=== PATIENT | male | born 1985 | race Caucasian/White ===

== ENCOUNTER 2018-05-19 00:26 | Emergency (ER) | payer OTHER ==
[~2018-05-19] VITALS: Ht 198.1 cm; Wt 86.5 kg
[~2018-05-19 00:26] MED LIST: MOBIC7.5 MG PO
[2018-05-19 02:02] LABS: HEMATOCRIT 38.3 % (38.0-50.0); HEMOGLOBIN 13.4 G/DL (12.5-16.6); MCH 30.5 PG (29.0-34.0); MCV 87.2 FL (86-99); PLATELET COUNT 194 K/uL (156-360); RBC DIS.WIDTH-CV 11.7 % (11.8-14.6); RBC DIS.WIDTH-SD 37.8 % (39-53); RED BLOOD COUNT 4.39 M/uL (4.00-5.50); WHITE BLOOD COUNT 7.7 K/uL (4.1-10.2)
[2018-05-19 02:14] LABS: CHLORIDE 109 mEq/L (99-109); POTASSIUM 3.3 mEq/L (3.7-5.4); SODIUM 143 mEq/L (136-147)
[2018-05-19 02:17] LABS: GLUCOSE 113 mg/dL (70-99); TOTAL PROTEIN 6.2 g/dL (6.4-8.3)
[2018-05-19 02:18] LABS: TOTAL BILIRUBIN 1.4 mg/dL (0.0-1.0)
[2018-05-19 02:20] LABS: ALKALINE PHOSPHATASE 72 IU/L (3-129); GFR ESTIMATE (CALCULATED) > 59 mL/min/ (58.99-99999)
[2018-05-19 02:21] LABS: UREA NITROGEN (BUN) 19 mg/dL (9-23)
[2018-05-19 02:22] LABS: AST (GOT) 21 IU/L (2-34)
[2018-05-19 02:23] LABS: ALT (GPT) 25 IU/L (3-49)
[2018-05-19] MEDS ORDERED: FLEXERIL10 MG PO (03:29)
[2018-05-19] MEDS ORDERED: NAPROSYN500 MG PO (03:29)
[2018-05-19 03:54] VITALS: BP 131/76
== END 2018-05-19 03:55 | disposition home or self-care (01) ==
LOC: EME 00:26
PROVIDERS: Physician Assistant
DX: S09.90XA Unspecified injury of head, initial encounter (principal); S20.219A Contusion of unspecified front wall of thorax, initial encounter; S16.1XXA Strain of muscle, fascia and tendon at neck level, initial encounter; V54.5XXA Driver of pick-up truck or van injured in collision with heavy transport vehicle or bus in traffic accident, initial encounter; Y92.411 Interstate highway as the place of occurrence of the external cause; F17.200 Nicotine dependence, unspecified, uncomplicated
CPT/HCPCS: 70450; 71260; 72125; 74177; 80053; 85027; 99281; 99284

== ENCOUNTER 2018-07-01 01:09 | Emergency (ER) | payer OTHER ==
[~2018-07-01] VITALS: Ht 198.1 cm; Wt 88.4 kg
[~2018-07-01 01:09] MED LIST changes: +FLEXERIL10 MG PO; +NAPROSYN500 MG PO
[2018-07-01 02:26] LABS: BASOPHIL (%) 0.9 % (0-1); BASOPHIL COUNT 0.1 K/uL (0-0.1); EOSINOPHIL (%) 7.1 % (0-5); EOSINOPHIL COUNT 0.6 K/uL (0-0.3); HEMATOCRIT 39.1 % (38.0-50.0); HEMOGLOBIN 13.4 G/DL (12.5-16.6); IMMATURE GRANULOCYTE (%) 0.3 % (0.0-0.7); LYMPHOCYTE (%) 31.6 % (15-42); LYMPHOCYTE COUNT 2.5 K/uL (1.0-2.8); MCHC 34.3 G/DL (30.0-36.0); MCV 87.7 FL (86-99); MONOCYTE (%) 5.9 % (3-12); MONOCYTE COUNT 0.5 K/uL (0-0.8); NEUTROPHIL (%) 54.2 % (45-76); NEUTROPHIL COUNT 4.3 K/uL (1.8-6.4); PLATELET COUNT 180 K/uL (156-360); RBC DIS.WIDTH-CV 12.1 % (11.8-14.6); RBC DIS.WIDTH-SD 39.1 % (39-53); RED BLOOD COUNT 4.46 M/uL (4.00-5.50); WHITE BLOOD COUNT 7.9 K/uL (4.1-10.2)
[2018-07-01 02:28] LABS: ERTH.SED.RATE 5 MM/HR (0-15)
[2018-07-01 02:29] LABS: CHLORIDE 110 mEq/L (99-109); POTASSIUM 3.9 mEq/L (3.7-5.4); SODIUM 141 mEq/L (136-147)
[2018-07-01 02:30] LABS: GLUCOSE 84 mg/dL (70-99)
[2018-07-01 02:34] LABS: CREATININE 0.9 mg/dL (0.6-1.3); GFR ESTIMATE (CALCULATED) > 59 mL/min/ (58.99-99999)
[2018-07-01 02:35] LABS: UREA NITROGEN (BUN) 14 mg/dL (9-23)
[2018-07-01 04:00] LABS: C-REACTIVE PROTEIN 3.1 MG/L (0-10)
[2018-07-01] MEDS ORDERED: MOTRIN800 MG PO (04:13)
[2018-07-01] MEDS ORDERED: NORCO 5/3251 TABLET PO (04:13)
[2018-07-01 04:44] VITALS: BP 94/61
== END 2018-07-01 04:44 | disposition home or self-care (01) ==
LOC: EME 01:09
PROVIDERS: Emergency Medicine
DX: M70.21 Olecranon bursitis, right elbow (principal); F17.200 Nicotine dependence, unspecified, uncomplicated
CPT/HCPCS: 73080; 80048; 85025; 85651; 86140; 99281; 99284